=== PATIENT | male | born 1950 | race Hispanic/Latino ===

== ENCOUNTER → 2019-08-06 | Day surgery (SDC) | payer MEDICARE ==
[2019-08-03 12:14] LABS: BASOPHILS % 0.2 % (0.0-1.0); EOSINOPHILS # (AUTO) 0.2 (0.0-0.4); EOSINOPHILS % 3.2 % (0.0-6.0); LYMPHOCYTES # (AUTO) 1.2 (1.0-3.2); MEAN CORPUSCULAR HEMOGLOBIN 31.1 pg (28-32); MEAN CORPUSCULAR HGB CONC 32.6 g/dL (31-35); MEAN CORPUSCULAR VOLUME 95.6 fL (81-99); MONOCYTES # (AUTO) 0.4 (0.2-0.8); MONOCYTES % 7.6 % (4.4-11.3); NEUTROPHILS % 63.8 % (38.7-80.0); PLATELET COUNT 135 x10e3/uL (140-360); RED CELL DISTRIBUTION WIDTH 12.9 % (11.7-14.4)
[2019-08-03 12:32] LABS: CALCIUM 9.5 mg/dL (8.4-10.2); CREATININE, SERUM 1.46 mg/dL (0.72-1.25)
--- NOTE | 2019-08-03 14:08 | Diagnostic Imaging Report ---
EXAMINATION: CHEST 2 VIEWS INDICATION: Pre-operative COMPARISON: None FINDINGS: LINES/TUBES:None LUNGS:The lungs are well-inflated. No focal consolidation or pulmonary edema. Subsegmental atelectasis at the left lung base. PLEURA:No pleural effusion or pneumothorax. MEDIASTINUM:The cardiomediastinal silhouette appears normal in size and shape. Atherosclerotic calcifications of the thoracic aorta. BONES/SOFT TISSUES:No acute osseous injury. ABDOMEN:No free air under the diaphragm. IMPRESSION: Subsegmental atelectasis at the left lung base. No focal pneumonia or pulmonary edema. Signed by: Del Roca MD on 08/03/2019 2:05 PM
[~2019-08-06] MED LIST: ATORVASTATIN CA20 MG PO; CEFTRIAXONE SOD 1 GM/NS 50 ML 50 ML IV ONE; CETIRIZINE HCL10 MG PO; FENTANYL CITRATE/PF 100MCG/2 ML INJ ONE; JANUVIA100 MG PO; LABETALOL HCL 5 MG/ML 20ML VIAL ONE; LIDOCAINE HCL 2% LOCAL INJ 5 ML SDV VIAL INJ ONE; MIDAZOLAM HCL 2 MG/2 ML VIAL ONE; PANTOPRAZOLE SO40 MG PO; PROPOFOL IV EMULSION 10 MG/ML 20 ML VIAL ONE
--- OUTSIDE RECORDS SUMMARY | 2019-08-06 08:00 | XMS REPORT ---
Author Author [facility] Address Unknown Phone Unavailable Care Team Providers Care Dry Charge Process Attendant Name Role Phone Js FERNANDEZ Unavailable Unavailable Problems This patient has no known problems. Allergies, Adverse Reactions, Alerts This patient has no known allergies or adverse reactions. Medications This patient has no known medications. Results Test Description Test Time Test Comments Text Results Atomic Results Result Comments CHEST 2 VIEWS 2019-08-03 14:04:00 [place] [id number] Patient Name: KASSIE MCCANN MR #: [id number] : 1950 Age/Sex: 69/M Req #: [id number] [facility] Physician: Ordered by: HAYLEE FERNANDEZ MD Report #: [id number] Location: OR Room/Bed: Procedure: [id number] DX/CHEST 2 VIEWS Exam Date: 08/03/19 Exam Time: 1232 REPORT STATUS: Signed EXAMINATION: CHEST 2 VIEWS INDICATION: Pre-operative COMPARISON: None FINDINGS: LINES/TUBES:None LUNGS:The lungs are well-inflated. No focal consolidation or pulmonary edema. Subsegmental atelectasis at the left lung base. PLEURA:No pleural effusion or pneumothorax. MEDIASTINUM:The cardiomediastinal silhouette appears normal in size and shape. Atherosclerotic calcifications of the thoracic aorta. BONES/SOFT TISSUES:No acute osseous injury. ABDOMEN:No free air under the diaphragm. IMPRESSION: Subsegmental atelectasis at the left lung base. No focal pneumonia or pulmonary edema. Signed by: Italo Roca MD on 08/03/2019 2:05 PM Dictated By: ITALO ROCA MD 04 Transcribed By: ALVARO on 08/03/191404 COPY TO: HAYLEE FERNANDEZ MD
[2019-08-06 09:45] VITALS: BP 142/77
--- NOTE | 2019-08-06 16:27 | Operative Report ---
DATE OF PROCEDURE: 08/06/2019 SURGEON: Jarrod Frias MD PREOPERATIVE DIAGNOSIS: Elevated PSA. POSTOPERATIVE DIAGNOSIS: Elevated PSA. OPERATIVE PROCEDURE PERFORMED: Transrectal ultrasound biopsy of the prostate. ANESTHESIA: MAC. ESTIMATED BLOOD LOSS: Minimal. INDICATIONS: Mr. Farhad Lowe is a 69-year-old gentleman with a history of a recent elevation of PSA and an abnormal rectal examination. He now presents for potential diagnosis of this problem. PROCEDURE IN DETAIL: The patient was brought in the operative room and placed in the left lateral decubitus position. After initiation of MAC anesthesia, he was prepped in usual fashion. On rectal examination, he had asymmetry with the right side being larger than the left and some firmness noted to the gland on that side. On ultrasound, the gland measured 50.51 mL in volume. There was no obvious hypoechoic lesion noted. There was some concern about a hypoechoic lesion at the apex, particularly on the right side. A total of 12 biopsies were taken using the standard pattern, which was sent to pathology for microscopic analysis. There was minimal bleeding noted at the conclusion of the procedure. The patient was returned to supine position and transferred to postanesthesia care in a good condition. Jarrod Frias MD HLW/MODL /[id number]
--- NOTE | 2019-08-06 20:48 | Diagnostic Imaging Report ---
Transrectal ultrasound of the prostate, ultrasound guidance. TECHNIQUE: Sonographic guidance was provided to Dr. Jarrod Friasfor the purposes of a transrectal prostate biopsy. HISTORY: Elevated PSA FINDINGS: The seminal vesicles are present and unremarkable. The gland size measures 3.8 x 5.1 x 5.0 cm. Prostate volume is 50.5 cubic cm. The peripheral zone is homogeneous without focal nodules. The transition zone demonstrates heterogeneous echotexture and lobulated contours consistent with BPH. IMPRESSION: As above. Signed by: Dr. Kaur Mullen MD on 08/06/2019 8:45 PM
== END | disposition home or self-care (01) ==
LOC: OR 07:54
PROVIDERS: ATTEND Urology
DX: R97.20 Elevated prostate specific antigen [PSA] (principal); E11.9 Type 2 diabetes mellitus without complications; K21.9 Gastro-esophageal reflux disease without esophagitis; Z01.810 Encounter for preprocedural cardiovascular examination; Z01.812 Encounter for preprocedural laboratory examination; Z01.818 Encounter for other preprocedural examination; Z79.84 Long term (current) use of oral hypoglycemic drugs
CPT/HCPCS: 36415 ×2; 55700; 71046; 76872; 76998; 80048; 82948; 85025; 88305; 93005; J0696; J2001; J2250; J2704; J3010; J3490